=== PATIENT | male | born 1955 ===

== ENCOUNTER 2022-12-05 06:16 | Day surgery (SDC) | payer OTHER ==
[~2022-12-05] VITALS: Ht 182.9 cm; Wt 69.7 kg
[~2022-12-05 06:16] MED LIST: AMIO200; Amiodarone HCl200 MG PO; Cyclobenzaprine5 MG PO; HYDACE5 PO; IBUHYD PO; IBUP800 PO; LEVSOD50; LEVSOD75 PO; Lisinopril2.5 MG; METPRE4DP PO; Norco 5-325 Ta1 EACH PO; OXYACE5T; OXYACE5T PO; OXYC20ER PO; Omeprazole20 M1; POTCHL20ER PO; RXHYDACE PO; WARF1; XARELTO10 MG PO; XARELTO20 MG PO
[2022-12-05] MEDS ORDERED: LEVSOD100 PO (07:24)
[2022-12-05] MEDS ORDERED: XARELTO20 MG PO (07:25)
[2022-12-05] MEDS ORDERED: Prinivil10 MG PO (07:26)
[2022-12-05] MEDS ORDERED: METO25 PO (07:27)
--- NOTE | 2022-12-05 08:27 | NUR ---
12/05/22 0826 Delfina Jones PT ON EYEBED WITH PILLOW UNDER KNEES, RIGHT SIDE RAIL IS UP AND LEFT SIDE PT'S ARM IS ON THE IRONING BOARD.
--- NOTE | 2022-12-05 10:07 | NUR ---
12/05/22 GABRIELE CLEMENTS PT REPORTS CHRONIC CERVICAL PAIN THAT IS CONTROLLED BY NERVE STIMULATOR. PT'S CATERINA IS BRINGING PT'S DEVICE TO TURN THE NERVE STIMULATOR BACK ON, IT WAS TURNED OFF DURING SURGERY.
[2022-12-05 10:25] VITALS: BP 135/96
--- NOTE | 2022-12-05 10:42 | NUR ---
12/05/22 1042 Fernando Gillette IV REMOVED FROM RIGHT FORE ARM, CANULA INTACT. PT TOLERATED PROCEDURE.
[2022-12-06] MEDS ORDERED: ONDA4ODT MM (16:38)
== END 2022-12-05 10:56 | disposition home or self-care (01) ==
LOC: ORSCSDS 06:16
PROVIDERS: Orthopaedic Surgery
PROC: 01N54ZZ Release Median Nerve, Percutaneous Endoscopic Approach (ICD-10-PCS; principal; 2022-12-05 08:00)
PROC: 01N40ZZ Release Ulnar Nerve, Open Approach (ICD-10-PCS; principal; 2022-12-05 08:00)
PROC: 0JNK0ZZ Release Left Hand Subcutaneous Tissue and Fascia, Open Approach (ICD-10-PCS; principal; 2022-12-05 08:00)
DX: G56.22 Lesion of ulnar nerve, left upper limb (principal); G56.03 Carpal tunnel syndrome, bilateral upper limbs; M72.0 Palmar fascial fibromatosis [Dupuytren]; I10 Essential (primary) hypertension; J44.9 Chronic obstructive pulmonary disease, unspecified; F17.210 Nicotine dependence, cigarettes, uncomplicated; E03.9 Hypothyroidism, unspecified; Z79.899 Other long term (current) drug therapy; I48.91 Unspecified atrial fibrillation; Z79.01 Long term (current) use of anticoagulants
CPT/HCPCS: A9270; J0171; J0690; J1100; J2250; J2405; J2704; J2795; J3010; J7120